=== PATIENT | male | born 1970 | race Caucasian/White ===

== ENCOUNTER 2022-07-21 19:00 | Emergency (ER) | payer BC ==
[~2022-07-21] VITALS: Ht 195.6 cm; Wt 148.8 kg
--- NOTE | 2022-07-21 19:14 | NUR ---
SENT BY URGENT [facility]ARE, LLE REDNESS AND EDEMA x 1WK SENT TO RULE OUT DVT. AMBULATORY, PLACED ON BED, AAOX4, BREATHING EVEN AND UNLABORED.
--- NOTE | 2022-07-21 20:15 | NUR ---
U/S TECH AT BED SIDE
[2022-07-21] MEDS ORDERED: CLIN300C12 PO (20:56)
--- NOTE | 2022-07-21 21:24 | NUR ---
Patient discharged to home in stable condition. Written and verbal after care instructions given. Patient verbalizes understanding of instruction.
[2022-07-21 21:25] VITALS: BP 135/70
== END 2022-07-21 21:24 | disposition home or self-care (01) ==
LOC: ER 19:12
DX: L03.116 Cellulitis of left lower limb (principal); I10 Essential (primary) hypertension; J45.909 Unspecified asthma, uncomplicated; Z79.899 Other long term (current) drug therapy
CPT/HCPCS: 93971-TC